=== PATIENT | female | born 1955 | race Caucasian/White ===

== ENCOUNTER → 2017-09-15 | Emergency (ER) | payer OTHER ==
[~2017-09-15] VITALS: Ht 162.6 cm; Wt 77.1 kg
[~2017-09-15] MED LIST: ASPIRIN 325 MG TABLET ONE; ASPIRIN 325 MG TABLET PO ONE; Calcium Gluconate 0.465 MEQ/ML VIAL IV ONE; DILTIAZEM HCL 25 MG IV IV ONE; DILTIAZEM HCL 25 MG IV ONE; DILTIAZEM HCL IV 125 MG in IV D5W 100 ML IV PRN; IV NS 0.9% 1,000 ML BAG IV ONE; IV NS 0.9% 500 ML BAG IV ONE; POTASSIUM CHLORIDE 20 MEQ TAB.PRT.SR PO ONE; POTASSIUM CL. PREMIX PERIPHER. 50 ML IV SCH
--- NOTE | 2017-09-15 21:35 | NUR ---
PT BIB SELF AMBULATORY TO ER BED 6, PT C/O PRESSURE AND FEELING HER HEART POUNDING SINCE 1999 TONIGHT. HR ON THE MONITOR 170'S; A FIB. MD AT BEDSIDE FOR EVAL. RESP EVEN UNLABORED/SKIN WARM AND DRY/DENIES N-V-D/AOX4. EMT AT BEDSIDE FOR EKG. 18G IV TO R AC USING ASEPTIC TECH, BLOOD HANDED OVER TO LAB AT BEDSIDE.
[2017-09-15 21:48] LABS: BASOPHILS # (AUTO) 0.1 /CMM (0.0-0.2); BASOPHILS % (AUTO) 1.1 % (0.0-2.0); EOSINOPHILS # (AUTO) 0.1 /CMM (0.0-0.7); EOSINOPHILS % (AUTO) 0.9 % (0.0-6.0); HEMATOCRIT 40 % (33-45); HEMOGLOBIN 13.5 g/dL (11.5-14.8); LYMPHOCYTES # (AUTO) 2.5 /CMM (0.8-4.8); LYMPHOCYTES % (AUTO) 26.4 % (20.0-44.0); MEAN CORPUSCULAR HEMOGLOBIN 26 PG (26.0-33.0); MEAN CORPUSCULAR HGB CONC 33 g/dl (31.0-36.0); MEAN CORPUSCULAR VOLUME 79 fL (82-100); MONOCYTES # (AUTO) 0.6 /CMM (0.1-1.30); MONOCYTES % (AUTO) 6.7 % (2.0-12.0); NEUTROPHILS # (AUTO) 6.1 /CMM (1.8-8.9); NEUTROPHILS % (AUTO) 64.9 % (43.0-81.0); PLATELET COUNT (AUTO) 317 /CMM (150-450); RDW COEFFICIENT OF VARIATION 13.7 (11.5-15.0); RED BLOOD CELL COUNT(AUTO) 5.16 MIL/uL (4.0-5.2); WHITE BLOOD COUNT (AUTO) 9.4 K/uL (4.3-11.0)
--- NOTE | 2017-09-15 21:52 | NUR ---
RADIOLOGY AT BEDSIDE FOR CXR
[2017-09-15 22:01] LABS: CALCIUM, SERUM 9.4 mg/dL (8.5-10.1); CREATININE 0.9 mg/dL (0.6-1.3); POTASSIUM 3.2 mmol/L (3.5-5.1)
[2017-09-15 22:09] LABS: TROPONIN I 0.024 ng/mL (0.00-0.056)
[2017-09-15 22:17] LABS: INR 1.04 (0.87-1.13); PROTHROMBIN TIME 10.8 SECS (9.5-12.7)
--- NOTE | 2017-09-15 22:39 | NUR ---
VERBAL ORDERS PER DR. ROUSE TO GIVE PT 1L NS BOLUS ONE TIME. PT MEDICATIED
--- NOTE | 2017-09-15 22:47 | NUR ---
PT RESTING QUIETLY, STATES "I FEEL BETTER". VSS.
[2017-09-15 23:04] VITALS: BP 158/93
== END | disposition home or self-care (01) ==
LOC: ER 21:26
DX: I48.91 Unspecified atrial fibrillation (principal)
CPT/HCPCS: 36415; 71010; 80048; 83880; 84484; 85025; 85730; 93005 ×2; 96361; 96374; 96375; 99291; A4606; J0610; J3490; J7030; Z7610

== ENCOUNTER 2021-03-31 14:52 | Emergency (ER) | payer OTHER ==
[~2021-03-31] VITALS: Ht 170.2 cm; Wt 82.1 kg
--- NOTE | 2021-03-31 15:00 | NUR ---
The patient is bibra89, from home, c/o rapid heart rate since last night, "i woke up very tired this morning", HR 178, BS 125. The patient denies chest pain. In room air and denies SOB. Respiration regular and unlabored. Attached to the monitor. Warm blanket provided for comfort. Will continue to monitor the patient.
[2021-03-31 15:23] LABS: BASOPHILS % (AUTO) 0.4 % (0.0-2.0); HEMATOCRIT 37 % (33-45); HEMOGLOBIN 12.1 g/dL (11.5-14.8); LYMPHOCYTES # (AUTO) 1.3 /CMM (0.8-4.8); LYMPHOCYTES % (AUTO) 17.2 % (20.0-44.0); MEAN CORPUSCULAR HGB CONC 33 g/dl (31.0-36.0); MEAN CORPUSCULAR VOLUME 79 fL (82-100); MONOCYTES # (AUTO) 0.6 /CMM (0.1-1.30); MONOCYTES % (AUTO) 7.4 % (2.0-12.0); NEUTROPHILS # (AUTO) 5.8 /CMM (1.8-8.9); PLATELET COUNT (AUTO) 311 /CMM (150-450); RED BLOOD CELL COUNT(AUTO) 4.63 MIL/uL (4.0-5.2); WHITE BLOOD COUNT (AUTO) 7.8 K/uL (4.3-11.0)
[2021-03-31 15:30] LABS: CALCIUM, SERUM 9.1 mg/dL (8.5-10.1); CARBON DIOXIDE 26 mmol/L (21-32); CHLORIDE 96 mmol/L (98-107); CREATININE 0.9 mg/dL (0.6-1.3); GLUCOSE 124 mg/dL (74-106); POTASSIUM 3.3 mmol/L (3.5-5.1); SODIUM SERUM 133 mmol/L (136-145); UREA NITROGEN, BLOOD 15 mg/dL (7-18)
[2021-03-31 15:32] LABS: MAGNESIUM 1.9 mg/dL (1.8-2.4)
[2021-03-31 15:43] LABS: ALANINE AMINOTRANSFERASE 20 U/L (12-78); ALBUMIN 3.5 g/dL (3.4-5.0); ALKALINE PHOSPHATASE 58 U/L (46-116); ASPARTATE AMINOTRANSFERASE 16 U/L (15-37); BILIRUBIN,DIRECT 0.1 mg/dL (0.0-0.2); BILIRUBIN,TOTAL 0.2 mg/dL (0.2-1.0); NT-PRO BNP 209 pg/mL (0-125); TOTAL PROTEIN, SERUM 7.9 g/dL (6.4-8.2)
--- NOTE | 2021-03-31 15:50 | NUR ---
Dr Ponce is made aware that the patient`s Hr flactuates from 99 to 141. Received an order of metoprolol 50 mg po x1. The order is read back, verified. Noted and carried out.
[2021-03-31] MEDS ORDERED: METOPROLOL TARTRATE 50 MG TABLET ONE (16:00)
[2021-03-31] MEDS ORDERED: POTASSIUM CHLORIDE 20 MEQ TAB.PRT.SR PO ONE ×2 (16:00→16:01)
[2021-03-31] MEDS ORDERED: METOPROLOL TARTRATE 25 MG TABLET PO ONE (16:00)
[2021-03-31 16:10] LABS: THYROID STIMULATING HORMONE 1.37 uIU/mL (0.358-3.74)
--- NOTE | 2021-03-31 16:29 | NUR ---
Dr Ponce is made aware patient c/o " sharp pain in the chest for 2 sec". Addendum: 03/31/21 at 1636 by HAIRSYCHAU rates pain /
--- NOTE | 2021-03-31 17:24 | NUR ---
Patient Tranfers to outside Facility Physician:Dr. Vergara Location:[facility] number for report [phone] ETA [id number] [facility]
--- NOTE | 2021-03-31 17:54 | NUR ---
REPORT GIVEN TO [facility]
--- NOTE | 2021-03-31 18:58 | NUR ---
THE PATIENT IS TRANFSERED TO [place] VIA ARRANGED TRANSPO.
[2021-03-31 18:59] VITALS: BP 121/77
== END 2021-03-31 18:59 | disposition short-term general hospital (02) ==
LOC: ER 14:55
DX: I48.0 Paroxysmal atrial fibrillation (principal); E87.6 Hypokalemia; Z20.822 Contact with and (suspected) exposure to COVID-19; Z79.01 Long term (current) use of anticoagulants; G89.29 Other chronic pain; M54.5 Low back pain; E78.5 Hyperlipidemia, unspecified; I10 Essential (primary) hypertension; I25.10 Atherosclerotic heart disease of native coronary artery without angina pectoris; R06.09 Other forms of dyspnea
CPT/HCPCS: 36415; 71045; 80048; 80076; 83735; 83880; 84439; 84443; 84484; 85025; 85730; 87426; 93005; 99291; C9803